=== PATIENT | male | born 1960 | race American Indian/Alaskan Native ===

== ENCOUNTER 2021-01-14 05:47 | Observation (INO) | payer OTHER ==
[2021-01-09 10:51] LABS: Hematocrit 44.9 % (35.5-45.6); Hemoglobin 14.5 gm/dl (11.8-15.2); Mean Corpuscular HGB Conc 32 % (32-34); Mean Corpuscular Volume 84 fl (84-94); Platelet Count 222 K/mm3 (140-440); Red Blood Count 5.33 M/mm3 (3.65-5.03); Red Cell Distribution Width 13.5 % (13.2-15.2)
--- NOTE | 2021-01-09 11:26 | Anesthesia Consultation ---
Anesthesia Consult and Med Hx Date of service: 01/14/21 - Airway Anesthetic Teeth Evaluation: Good ROM Head & Neck: Adequate Mental/Hyoid Distance: Adequate Mallampati Class: Class III Intubation Access Assessment: Possibly Difficult - Pulmonary Exam CTA: Yes - Cardiac Exam Cardiac Exam: RRR - Pre-Operative Health Status ASA Pre-Surgery Classification: ASA2 Proposed Anesthetic Plan: General Nerve Block: TAP - Pulmonary Hx Smoking: No Hx Respiratory Symptoms: No Hx Sleep Apnea: Yes (compliant with CPAP) - Cardiovascular System Hx Hypertension: Yes Hx Heart Attack/AMI: No Hx Percutaneous Transluminal Coronary Angioplasty (PTCA): No - Central Nervous System CVA: No - Endocrine Hx Renal Disease: No Hx Liver Disease: No Hx Non-Insulin Dependent Diabetes: Yes Hx Thyroid Disease: No - Other Systems Hx Cancer: Yes (prostate ca) - Additional Comments Anesthesia Medical History Comments: No hx anesthetic complications. Off ASA x2wks.
[2021-01-09 13:12] LABS: BUN/Creatinine Ratio 19; Blood Urea Nitrogen 17 mg/dL (9-20); Calcium 9.8 mg/dL (8.4-10.2); Hemolysis Index 3
[2021-01-14] MEDS ORDERED: LACTATED RINGERS 1,000 ML IV SCH (06:00)
[2021-01-14] MEDS ORDERED: fentaNYL 100 MCG/2 ML INJ IV PRN (06:00)
[2021-01-14] MEDS ORDERED: CELECOXIB 200 MG CAP PO NR (06:00)
[2021-01-14] MEDS ORDERED: ceFAZolin/STERILE WATER 2 GM/20 ML SYRINGE IV NR (06:00)
[2021-01-14] MEDS ORDERED: GABAPENTIN 300 MG CAP PO NR (06:00)
[2021-01-14] MEDS ORDERED: ACETAMINOPHEN 500 MG TAB PO SCH (06:00)
[2021-01-14] MEDS ORDERED: MIDAZOLAM 2 MG/2 ML INJ IV NR (06:00)
[2021-01-14] MEDS ORDERED: BACTERIOSTATIC SODIUM CHLORIDE 0.9% 30 ML VIAL INFILTRATI ONE (06:14)
--- NOTE | 2021-01-14 07:01 | Anesthesia Day of Surgery ---
Anesthesia Day of Surgery - Day of Surgery Patient Examined: Yes Patient H&P Reviewed: Yes Patient is NPO: Yes
[2021-01-14] MEDS ORDERED: BUPIVACAINE/PF (0.5%) 5 MG/1 ML 30 ML VIAL INFILTRATI ONE (07:12)
[2021-01-14] MEDS ORDERED: LIDOCAINE (1%) 10 MG/1 ML VIAL 20 ML MDV ONE (07:12)
[2021-01-14] MEDS ORDERED: ROCURONIUM 50 MG/5 ML INJ IV ONE ×2 (07:15→09:24)
[2021-01-14] MEDS ORDERED: fentaNYL 100 MCG/2 ML INJ ONE (07:16)
[2021-01-14] MEDS ORDERED: LIDOCAINE MPF (2%) 20 MG/1 ML VIAL 5 ML ONE (07:16)
[2021-01-14] MEDS ORDERED: propofoL 200 MG/20 ML VIAL IV ONE (07:17)
[2021-01-14] MEDS ORDERED: ONDANSETRON 4 MG/2 ML INJ IV PRN ×2 (09:20→11:00)
[2021-01-14] MEDS ORDERED: HYDROmorphone 1 MG/1 ML INJ IV PRN (09:20)
[2021-01-14] MEDS ORDERED: CITRIC ACID-SOD CITRATE SOLN 500 ML IV SOLN IV ONE (09:23)
[2021-01-14] MEDS ORDERED: CALCIUM CHLORIDE 1,000 MG/10 ML SYRINGE IV ONE (09:24)
[2021-01-14] MEDS ORDERED: SODIUM CHLORIDE 0.9% IRRIG SOLN 2000 ML IR ONE (09:25)
[2021-01-14] MEDS ORDERED: THROMBIN (RECOMBINANT) 5,000 UNIT VIAL TP ONE (09:26)
[2021-01-14] MEDS ORDERED: ONDANSETRON 4 MG/2 ML INJ ONE (10:16)
[2021-01-14] MEDS ORDERED: KETOROLAC 30 MG/1 ML INJ ONE (10:16)
[2021-01-14] MEDS ORDERED: NEOSTIGMINE 10MG/10 ML INJ MDV ONE (10:16)
[2021-01-14] MEDS ORDERED: GLYCOPYRROLATE 0.4 MG/2 ML INJ ONE (10:16)
[2021-01-14] MEDS ORDERED: MORPHINE 2 MG/1 ML INJ IV PRN (11:00)
[2021-01-14] MEDS ORDERED: SODIUM CHLORIDE 0.9% 1000 ML 1,000 ML IV SCH (11:00)
[2021-01-14] MEDS ORDERED: KETOROLAC 30 MG/1 ML INJ IV PRN (11:00)
[2021-01-14] MEDS ORDERED: NALOXONE 0.4 MG/1 ML INJ IV PRN (11:00)
[2021-01-14] MEDS: HYDROmorphone 1 MG/1 ML INJ IV PRN ×4 (11:20→12:40)
[2021-01-14] MEDS ORDERED: HYDROmorphone 1 MG/1 ML INJ ONE (11:20)
[2021-01-14] MEDS ORDERED: SODIUM CHLORIDE 0.9% 1000 ML IV SOLN ONE (11:20)
--- NOTE | 2021-01-14 13:03 | Operative Report ---
DATE OF SURGERY: 01/14/2021 PREOPERATIVE DIAGNOSIS: Prostate cancer, Osmani 9. POSTOPERATIVE DIAGNOSIS: Prostate cancer, Ethel 9. PROCEDURE: Robotic-assisted laparoscopic prostatectomy, bladder neck suspension, stem cell implant. SURGEON: Gilbert Aguirre MD DESIGN VERIFICATION ENGINEER: Magnolia Huggins. ANESTHESIA: General. ESTIMATED BLOOD LOSS: 150 mL. FLUIDS: Crystalloid. COMPLICATIONS: No complications. INDICATIONS: This patient is a 60-year-old gentleman referred by the [facility] for evaluation of prostate cancer. Discussed options. The patient agreed to proceed with surgical intervention. He was also seen by Radiation Therapy. Medical clearance was obtained. Risks were discussed. He agreed to proceed with surgical intervention. DESCRIPTION OF PROCEDURE: The patient was taken to the operative suite, placed in a supine position. After adequate general anesthesia, placed in modified dorsal lithotomy position, prepped and draped in sterile fashion. Magnolia Huggins was at the bed side to assist, present throughout the case. The abdomen was prepped and draped in sterile fashion. Hayes catheter was placed on the abdominal field. The patient had an umbilical hernia repair in the 1970s, so I was concerned about scar tissue in that area, therefore my first insufflation was obtained via the left side of the abdomen. Further pubic symphysis was marked cephalad 15 cm, which is right over the previous incision, 9 cm lateral and additional 9 cm lateral was marked on the abdomen for robotic port placement. An incision was made to accommodate 8 mm port on the skin. A Veress needle was then placed with towel clips. Drop test was negative. Opening pressure was 5 cm of water. Insufflation to the 15 cm of water was performed without difficulty. A 5 mm port was then placed into the abdomen without difficulty. No signs of injury. I then looked at the underside of the umbilical scar. There were no adhesions of bowel, omentum or anything else. At that point, I did use the 10 mm port, made an incision in the supraumbilical area and my 10 mm port was placed without difficulty. All the other ports were placed under direct vision. On the right side, there was a 5 mm helper port as well as a 10 mm helper port. The patient was then placed in exaggerated Trendelenburg position, robotic cart was docked between the legs. Second arch of the posterior to the bladder was scored exposing the seminal vesicles in best efforts, they were dissected out, dissecting was also taken to the apex of the prostate. Vas deferens transected bilaterally. Copious irrigation was performed, adequate hemostasis achieved. Next, attention was taken to the anterior abdominal wall, which scored lateral to the lateral umbilical ligament and then across the midline to allow for bladder flap. Endopelvic fascia was opened bilaterally without difficulty. Dorsal vein complex was then controlled with a 60 mm vascular stapler. Attention was then taken to the anterior bladder neck, which was opened without difficulty exposing the Hayes catheter. It was deflated and used by anterior retraction. Posterior bladder neck was transected exposing the seminal vesicles and vas deferens, which were pulled anteriorly. Lateral pedicles were then controlled with the 60 mm vascular stapler. Then, blunt and sharp dissection was then taken to dissect distal aspect of the prostate. The urethra was then transected exposing the Hayes catheter. Prostate was dissected out and placed in the EndoCatch bag. Adequate hemostasis was achieved. There was redundant neurovascular bundle that could be appreciated bilaterally. Next, the bladder neck was then tapered down to allow a combination of an 18-[place]gent[place] Hayes catheter using a 2-0 Vicryl at the 5 o'clock and 7 o'clock positions. Double V-Loc was placed at the 6 o'clock position of the bladder neck and corresponding aspect of the urethra. The Hayes catheter was placed, running stitch was placed without difficulty. The anastomotic stitch was cinched down. Hayes was inflated with 20 cc of sterile water irrigated. No clots. Bladder neck suspension was performed attaching the V-Loc stitch bilaterally to the pubic rami. Copious irrigation was performed. Adequate hemostasis was achieved. A 1 cm stem cell graft was then placed on the neurovascular bundle bilaterally. Platelet-rich plasma and platelet-poor plasma was injected on the anterior aspect of the urethra followed by membrane to facilitate healing of the incontinence. Adrien-Figueroa drain was brought up to the side port on the left. Robotic cart was undocked. The patient was placed in supine position. Umbilical incision was extended to allow removal of the prostate. Rectus fascia was closed with 0 Vicryl in a [id number] fashion. Adrien-Figueroa drain was tied with 2-0 silk in interrupted fashion. Hayes catheter and side port was folded over and tied with also in interrupted fashion. Skin was closed with 3-0 Monocryl in interrupted fashion. The patient tolerated the procedure well, extubated and taken to the recovery room. PLAN: He will be observed overnight and go home on Bactrim and Ultram (the patient has a history of substance abuse). He will be given narcotic script and use at his discretion. TID: [id number] RECEIPT: [id number] LORENZO/CEDRICK
--- NOTE | 2021-01-14 15:08 | Post Anesthesia Evaluation ---
- Post Anesthesia Evaluation Patient Participated: Yes Airway Patent: Yes Stable Respiratory Function: Yes Nausea/Vomiting: No Temp > 96.8F: Yes Pain Manageable: Yes Adequeate Hydration: Yes Anesthesia Complications: No Block Receding Appropriately: Yes Patient on Ventilator: No
--- NOTE | 2021-01-14 16:28 | Consultation ---
History of Present Illness - Reason for Consult Consult date: 01/14/21 Diabetes Requesting physician: CATHY AGUIRRE - History of Present Illness 60 YO Male with DM, HTN, HLD, SHANIQUE on CPAP, CaP S/P robotic prostatectomy. Consult placed by Dr. Aguirre for medical management. Patient seen and evaluated in his room. Patient resting comfortably. Patient denies pain. No reported nursing events. Past History Past Medical History: cancer, diabetes, hypertension, hyperlipidemia Past Surgical History: Other (Prostate surgery) Social history: , lives with family. denies: smoking, alcohol abuse, prescription drug abuse Family history: hypertension Medications and Allergies Allergies Allergy/AdvReac Type Severity Reaction Status Date / Time No Known Allergies Allergy Unverified 01/08/21 16:24 Home Medications Medication Instructions Recorded Confirmed Last Taken Type Empagliflozin [Jardiance] 10 mg PO DAILY 01/08/21 01/08/21 01/13/21 History Metformin HCl [metFORMIN] 1,000 mg PO BID 01/08/21 01/08/21 01/13/21 History Simvastatin 20 mg PO HS 01/08/21 01/08/21 01/13/21 History amLODIPine [Norvasc] 5 mg PO DAILY 01/08/21 01/14/21 01/14/21 05:00 History glipiZIDE [Glucotrol] 10 mg PO BID 01/08/21 01/08/21 01/13/21 History lisinopriL [Zestril TAB] 40 mg PO QDAY 01/08/21 01/08/21 01/13/21 History Active Meds: Active Medications Acetaminophen (Acetaminophen 500 Mg Tab) 1,000 mg PO PREOP LYDIA Last Admin: 01/14/21 06:50 Dose: 1,000 mg Documented by: Amlodipine Besylate (Amlodipine 5 Mg Tab) 5 mg PO DAILY [facility] Cefazolin Sodium (Cefazolin/Sterile Water 2 Gm/20 Ml Syringe) 2 gm IV PREOP NR Stop: 01/14/21 23:00 Celecoxib (Celecoxib 200 Mg Cap) 200 mg PO PREOP NR Stop: 01/14/21 23:01 Last Admin: 01/14/21 06:50 Dose: 200 mg Documented by: Fentanyl (Fentanyl 100 Mcg/2 Ml Inj) 100 mcg IV ONCE PRN PRN Reason: sedation for nerve block Gabapentin (Gabapentin 300 Mg Cap) 300 mg PO PREOP NR Stop: 01/14/21 23:01 Last Admin: 01/14/21 06:50 Dose: 300 mg Documented by: Glipizide (Glipizide 10 Mg Tab) 10 mg PO BIDDIAB [facility] Hydromorphone HCl (Hydromorphone 1 Mg/1 Ml Inj) 0.25 mg IV Q10MIN PRN PRN Reason: Pain, Moderate (4-6) Stop: 01/14/21 23:00 Lactated Ringer's (Lactated Ringers) 1,000 mls @ 100 mls/hr IV DIRECT LYDIA Stop: 01/14/21 23:59 Last Admin: 01/14/21 06:50 Dose: 100 mls/hr Documented by: Sodium Chloride (Nacl 0.9% 1000 Ml) 1,000 mls @ 125 mls/hr IV DIRECT LYDIA Cefazolin Sodium (Ancef/Ns 1 Gm/50 Ml) 1 gm in 50 mls @ 100 mls/hr IV Q8H [facility]; Protocol Stop: 01/15/21 00:29 Ketorolac Tromethamine (Ketorolac 30 Mg/1 Ml Inj) 15 mg IV Q6H PRN PRN Reason: Pain, Mild (1-3) Stop: 01/19/21 10:59 Last Admin: 01/14/21 16:20 Dose: 15 mg Documented by: Lisinopril (Lisinopril 40 Mg Tab) 40 mg PO QDAY [facility] Metformin HCl (Metformin 500 Mg Tab) 1,000 mg PO BIDDIAB [facility] Midazolam HCl (Midazolam 2 Mg/2 Ml Inj) 2 mg IV PREOP NR Stop: 01/14/21 23:01 Miscellaneous Medication (Empagliflozin [Jardiance]) 10 mg PO DAILY [facility] Morphine Sulfate (Morphine 2 Mg/1 Ml Inj) 2 mg IV Q4H PRN PRN Reason: Pain, Moderate (4-6) Naloxone HCl (Naloxone 0.4 Mg/1 Ml Inj) 0.1 mg IV Q2MIN PRN PRN Reason: Res Rate </= 8 or 02 SAT < 92% Ondansetron HCl (Ondansetron 4 Mg/2 Ml Inj) 4 mg IV Q8H PRN PRN Reason: Nausea And Vomiting Pravastatin Sodium (Pravastatin 40 Mg Tab) 40 mg PO QHS [facility] Review of Systems Constitutional: no weight loss, no weight gain, no fever, no chills Ears, nose, mouth and throat: no ear pain, no ear discharge, no tinnitis, no decreased hearing, no nasal congestion, no nasal discharge Cardiovascular: no chest pain, no orthopnea, no palpitations, no edema, no syncope Respiratory: no cough, no cough with sputum, no excessive sputum, no hemoptysis, no dyspnea on exertion Gastrointestinal: no abdominal pain, no nausea, no constipation, no change in bowel habits, no hematemesis Genitourinary Male: no hematuria, no flank pain, no discharge, no urinary frequency, no urinary hesitancy Rectal: no pain, no incontinence, no bleeding Musculoskeletal: no neck stiffness, no shooting arm pain, no low back pain, no shooting leg pain Integumentary: no rash, no pruritis, no sores, no jaundice, no boils Neurological: no head injury, no paralysis, no weakness, no numbness, no tingling, no syncope, no tremors Psychiatric: no anxiety, no change in sleep habits, no sleep disturbances, no insomnia, no change in appetite Endocrine: no cold intolerance, no heat intolerance, no polydipsia, no polyuria, no nocturia Hematologic/Lymphatic: no easy bruising, no easy bleeding, no lymphadenopathy Allergic/Immunologic: no allergic rhinitis, no anaphylaxis Exam - Constitutional Vitals: Temp Pulse Resp BP Pulse Ox 97.8 F 93 H 12 121/60 97 01/14/21 11:32 01/14/21 13:17 01/14/21 13:17 01/14/21 13:17 01/14/21 14:42 General appearance: Present: no acute distress, obese - EENT Eyes: Present: PERRL ENT: hearing intact, clear oral mucosa - Neck Neck: Present: supple, normal ROM - Respiratory Respiratory effort: normal Respiratory: bilateral: CTA - Cardiovascular Heart Sounds: Present: S1 & S2. Absent: rub, click - Extremities Extremities: pulses symmetrical, No edema Peripheral Pulses: within normal limits - Abdominal General gastrointestinal: Present: soft, non-tender, non-distended, normal bowel sounds Male genitourinary: Present: normal - Integumentary Integumentary: Present: clear, warm, dry - Musculoskeletal Musculoskeletal: gait normal, strength equal bilaterally - Psychiatric Psychiatric: appropriate mood/affect, intact judgment & insight - Neurologic Neurologic: CNII-XII intact, moves all extremities Results - Labs CBC & Chem 7: 01/09/21 10:00 01/09/21 10:00 Labs: Abnormal lab results 01/14/21 01/14/21 Range/Units 06:50 11:10 POC Glucose 109 H 162 H (70-105) mg/dL Assessment and Plan - Patient Problems (1) Hypertension Current Visit: Yes Status: Acute Qualifiers: Hypertension type: essential hypertension Qualified Code(s): I10 - Essential (primary) hypertension (2) Hyperlipidemia Current Visit: Yes Status: Acute Qualifiers: Hyperlipidemia type: mixed hyperlipidemia Qualified Code(s): E78.2 - Mixed hyperlipidemia Plan to address problem: Low cholesterol diet, statin therapy, (3) Diabetes Current Visit: Yes Status: Acute Plan to address problem: consistent carbohydrate diet, accu check, sliding scale insulin, hypoglycemia protocol (4) Sleep apnea Current Visit: Yes Status: Acute Plan to address problem: CPAP qhs, outpatient pulmonary f/u, (5) Obesity Current Visit: Yes Status: Acute Qualifiers: Body mass index: BMI 32.0-32.9 Plan to address problem: Balanced diet, increase physical activity at discharge, behavior change counseling, +15 minutes. (6) Advance care planning Current Visit: Yes Status: Acute Plan to address problem: Disease education conducted, diagnosis discussed, patient is full code, care p marni discussed, patient knowledges understanding agreement with care plan, +30 minutes.
[2021-01-14] MEDS ORDERED: DEXTROSE 50% IN WATER (25GM) 50 ML SYRINGE IV PRN (16:29)
[2021-01-14] MEDS: ceFAZolin/NS 1 GM/50 ML 1 GM/50 ML BAG IV SCH (16:31)
[2021-01-14] MEDS ORDERED: metFORMIN 500 MG TAB PO SCH (17:00)
[2021-01-14] MEDS ORDERED: glipiZIDE 10 MG TAB PO SCH (17:00)
[2021-01-14] MEDS ORDERED: NON-FORMULARY EACH (Metformin Hcl [Metformin] 1,000 MG Tablet) PO SCH (22:00)
[2021-01-14] MEDS ORDERED: NON-FORMULARY EACH (Simvastatin [Simvastatin] 20 MG Tablet) PO SCH (22:00)
[2021-01-14] MEDS ORDERED: PRAVASTATIN 40 MG TAB PO SCH (22:00)
[2021-01-14] MEDS: INSULIN LISPRO 100 UNIT/ML SUB-Q SCH (22:20)
[2021-01-15] MEDS: ceFAZolin/NS 1 GM/50 ML 1 GM/50 ML BAG IV SCH (00:07)
[2021-01-15 06:00] LABS: Basophils % (Auto) 0.6 % (0.0-1.8); Eosinophils % (Auto) 0.9 % (0.0-4.3); Hematocrit 36.2 % (35.5-45.6); Hemoglobin 12.1 gm/dl (11.8-15.2); Lymphocytes # (Auto) 1.7 K/mm3 (1.2-5.4); Lymphocytes % (Auto) 32.6 % (13.4-35.0); Mean Corpuscular HGB Conc 34 % (32-34); Mean Corpuscular Volume 84 fl (84-94); Monocytes # (Auto) 0.6 K/mm3 (0.0-0.8); Monocytes % (Auto) 10.6 % (0.0-7.3); Platelet Count 186 K/mm3 (140-440); Red Blood Count 4.32 M/mm3 (3.65-5.03); Red Cell Distribution Width 13.8 % (13.2-15.2)
[2021-01-15 06:14] LABS: BUN/Creatinine Ratio 13; Blood Urea Nitrogen 13 mg/dL (9-20); Calcium 8.2 mg/dL (8.4-10.2); Hemolysis Index 3
--- NOTE | 2021-01-15 08:33 | Short Stay Summary ---
Short Stay Documentation Date of service: 01/14/21 - History H&P: obtained from office - Allergies and Medications Current Medications: Allergies No Known Allergies Allergy (Unverified 01/08/21 16:24) Home Medications Medication Instructions Recorded Confirmed Last Taken Type Empagliflozin [Jardiance] 10 mg PO DAILY 01/08/21 01/08/21 01/13/21 History Metformin HCl [metFORMIN] 1,000 mg PO BID 01/08/21 01/08/21 01/13/21 History Simvastatin 20 mg PO HS 01/08/21 01/08/21 01/13/21 History amLODIPine [Norvasc] 5 mg PO DAILY 01/08/21 01/14/21 01/14/21 05:00 History glipiZIDE [Glucotrol] 10 mg PO BID 01/08/21 01/08/21 01/13/21 History lisinopriL [Zestril TAB] 40 mg PO QDAY 01/08/21 01/08/21 01/13/21 History Active Medications Acetaminophen (Acetaminophen 500 Mg Tab) 1,000 mg PO PREOP LYDIA Last Admin: 01/14/21 06:50 Dose: 1,000 mg Documented by: Cefazolin Sodium (Cefazolin/Sterile Water 2 Gm/20 Ml Syringe) 2 gm IV PREOP NR Stop: 01/14/21 23:00 Celecoxib (Celecoxib 200 Mg Cap) 200 mg PO PREOP NR Stop: 01/14/21 23:01 Last Admin: 01/14/21 06:50 Dose: 200 mg Documented by: Fentanyl (Fentanyl 100 Mcg/2 Ml Inj) 100 mcg IV ONCE PRN PRN Reason: sedation for nerve block Gabapentin (Gabapentin 300 Mg Cap) 300 mg PO PREOP NR Stop: 01/14/21 23:01 Last Admin: 01/14/21 06:50 Dose: 300 mg Documented by: Hydromorphone HCl (Hydromorphone 1 Mg/1 Ml Inj) 0.25 mg IV Q10MIN PRN PRN Reason: Pain, Moderate (4-6) Stop: 01/14/21 23:00 Hydromorphone HCl (Hydromorphone 1 Mg/1 Ml Inj) 0.5 mg IV Q10MIN PRN PRN Reason: Pain , Severe (7-10) Stop: 01/14/21 23:00 Lactated Ringer's (Lactated Ringers) 1,000 mls @ 100 mls/hr IV DIRECT LYDIA Stop: 01/14/21 23:59 Last Admin: 01/14/21 06:50 Dose: 100 mls/hr Documented by: Midazolam HCl (Midazolam 2 Mg/2 Ml Inj) 2 mg IV PREOP NR Stop: 01/14/21 23:01 Ondansetron HCl (Ondansetron 4 Mg/2 Ml Inj) 4 mg IV ONCE PRN PRN Reason: Nausea And Vomiting Stop: 01/14/21 20:00 - Brief post op/procedure progress note Date of procedure: 01/14/21 Pre-op diagnosis: prostate cancer Post-op diagnosis: same Procedure: robotic prostatectomy, stem cell implant Anesthesia: GETA Surgeon: CATHY CESAR Estimated blood loss: other (150cc) Pathology: list Specimen disposition: to lab Condition: stable - Hospital course Hospital course: pt has ultram & bactrim at home post op info on chart labs look good no issues dc karson dc home with martinez - Disposition Condition at discharge: Stable Short Stay Discharge Plan Follow up with: [facility] [Primary Care Provider] - 7 Days
[2021-01-15 08:51] VITALS: BP 130/73
[2021-01-15] MEDS: INSULIN LISPRO 100 UNIT/ML SUB-Q SCH (09:09)
--- NOTE | 2021-01-15 09:42 | Progress Note ---
Assessment and Plan 60 YO Male with DM, HTN, HLD, SHANIQUE on CPAP, CaP S/P robotic prostatectomy. -- Hypertension Current Visit: Yes Status: Acute Qualifiers: Hypertension type: essential hypertension Qualified Code(s): I10 - Essential (primary) hypertension Will cont home meds -- Hyperlipidemia Current Visit: Yes Status: Acute Qualifiers: Hyperlipidemia type: mixed hyperlipidemia Qualified Code(s): E78.2 - Mixed hyperlipidemia Plan to address problem: Low cholesterol diet, statin therapy, -- Diabetes Current Visit: Yes Status: Acute Plan to address problem: consistent carbohydrate diet, accu check, sliding scale insulin, hypoglycemia protocol -- Sleep apnea Current Visit: Yes Status: Acute Plan to address problem: CPAP qhs, outpatient pulmonary f/u, -- Obesity Current Visit: Yes Status: Acute Qualifiers: Body mass index: BMI 32.0-32.9 Plan to address problem: Balanced diet, increase physical activity at discharge, behavior change counseling, +15 minutes. --DVT Px: ambulatory --Stable for discharge, continue follow-up outpatient with primary care in 1 week and with counselor urologist Subjective Date of service: 01/15/21 Interval history: Patient seen and examined. Medical records and medication list reviewed. No acute event overnight noted by the RN. Patient denies any chest pain or difficulty breathing. Patient is tolerating diet. Discussed plan of care at bedside with patient. Patient is planned for discharge today Objective - Constitutional Vitals: Vital Signs - 12hr 01/14/21 01/15/21 01/15/21 23:40 02:29 03:50 Temperature 99.2 F 98.4 F Pulse Rate 108 H 102 H Respiratory 20 20 Rate Blood Pressure 137/71 127/69 O2 Sat by Pulse 97 96 96 Oximetry 01/15/21 01/15/21 01/15/21 07:21 07:40 09:26 Temperature 98.6 F Pulse Rate 97 H 100 H Respiratory 18 Rate Blood Pressure 130/73 O2 Sat by Pulse 100 99 Oximetry General appearance: Present: no acute distress, well-nourished - EENT Eyes: PERRL, EOM intact ENT: hearing intact, clear oral mucosa Ears: bilateral: normal - Neck Neck: supple, normal ROM - Respiratory Respiratory effort: normal Respiratory: bilateral: CTA - Breasts Breasts: normal - Cardiovascular Rhythm: regular Heart Sounds: Present: S1 & S2. Absent: gallop, rub Extremities: pulses intact, No edema, normal color, Full ROM - Gastrointestinal General gastrointestinal: Present: soft, non-tender, non-distended, normal bowel sounds - Integumentary Integumentary: clear, warm, dry - Musculoskeletal Musculoskeletal: 1, strength equal bilaterally - Neurologic Neurologic: moves all extremities - Psychiatric Psychiatric: memory intact, appropriate mood/affect, intact judgment & insight - Labs CBC & Chem 7: 01/15/21 04:17 01/15/21 04:17 Labs: Abnormal lab results 01/14/21 01/14/21 01/14/21 Range/Units 11:10 16:20 20:47 [place] % (Auto) (0.0-7.3) % Sodium (137-145) mmol/L Glucose (75-100) mg/dL POC Glucose 162 H 144 H 184 H (70-105) mg/dL Calcium (8.4-10.2) mg/dL 01/15/21 01/15/21 01/15/21 Range/Units 04:17 04:17 06:00 [place] % (Auto) 10.6 H (0.0-7.3) % Sodium 136 L (137-145) mmol/L Glucose 106 H (75-100) mg/dL POC Glucose 128 H (70-105) mg/dL Calcium 8.2 L (8.4-10.2) mg/dL
[2021-01-15] MEDS ORDERED: amLODIPine 5 MG TAB PO SCH (10:00)
[2021-01-15] MEDS ORDERED: LISINOPRIL 40 MG TAB PO SCH (10:00)
[2021-01-15] MEDS ORDERED: NON-FORMULARY EACH (Empagliflozin [Jardiance] 10 MG Tablet) PO SCH (10:00)
== END 2021-01-15 14:31 | disposition home or self-care (01) ==
LOC: OR 05:47 → 3A 10:43 → 4A 14:03
PROVIDERS: ADMIT Urology; ATTEND Urology
DX: C61 Malignant neoplasm of prostate (principal); Z20.822 Contact with and (suspected) exposure to COVID-19; I10 Essential (primary) hypertension; E78.5 Hyperlipidemia, unspecified; E11.9 Type 2 diabetes mellitus without complications; G47.33 Obstructive sleep apnea (adult) (pediatric); E66.9 Obesity, unspecified; Z79.84 Long term (current) use of oral hypoglycemic drugs; Z79.899 Other long term (current) drug therapy; Z98.890 Other specified postprocedural states; Z68.32 Body mass index [BMI] 32.0-32.9, adult
CPT/HCPCS: 36415; 55866; 64450; 80048; 82962; 85025; 85027; 86850; 86900; 86901; 88309; 96361; 96365; 96366; 96375; A4217; A9270; G0378; J0690; J1170; J1885; J2250; J2270; J2405; J2704; J2710; J3010; J7030; J7120; Q4140; S2900; U0003